=== PATIENT | male | born 1980 | race Two or more races ===

== ENCOUNTER 2019-01-10 10:56 | Emergency (ER) | payer MEDICAID, OTHER ==
[~2019-01-10] VITALS: Ht 182.9 cm; Wt 154.2 kg
[2019-01-10] MEDS ORDERED: SODIUM CHLORIDE 0.9% 1,000 ML IV ONE (11:51)
[2019-01-10] MEDS ORDERED: PROMETHAZINE HCL 25 MG/ML 1ML IV PRN (12:00)
[2019-01-10] MEDS ORDERED: KETOROLAC TROMETH 30 MG/ML 1ML VIAL IV ONE (12:00)
[2019-01-10 12:05] LABS: Basophils # (auto) 0.1 uL; Basophils % (auto) 0.7 % (0.0-2.0); Eosinophils # (auto) 0.1 uL; Eosinophils % (auto) 1.8 % (0.0-7.0); Hematocrit 49.8 % (41.0-53.0); Hemoglobin 16.8 g/dL (13.5-17.5); Lymphocytes # (auto) 2.2 uL; Lymphocytes % (auto) 28.8 % (10.0-50.0); Mean Corpuscular Hgb Conc. 33.6 g/dL (32.0-36.0); Mean Corpuscular Volume 89.1 fL (80.0-100.0); Monocytes # (auto) 0.6 uL; Monocytes % (auto) 8.3 % (0.0-12.0); Neutrophils # (auto) 4.7 uL; Neutrophils % (auto) 60.4 % (37.0-80.0); Nucleated Red Blood Cells % 0.1 %; Platelet Count (auto) 188 10^3/uL (140-450); Red Blood Cells 5.59 10^6/uL (4.5-5.90); Red Cell Distribution Width 13.7 % (11.8-14.3); White Blood Cell 7.7 10^3/uL (4.4-10.8)
[2019-01-10 12:45] LABS: Albumin 3.7 g/dL (3.4-5.0); BUN/Creatinine Ratio 17.4; Calcium 8.8 mg/dL (8.5-10.1); Magnesium 2.3 mg/dL (1.6-2.6); Potassium 3.9 mmol/L (3.5-5.1)
[2019-01-10 12:47] LABS: Bilirubin, Total 0.7 mg/dL (0.2-1.0); Total Protein 8.1 g/dL (6.4-8.2)
[2019-01-10 16:30] VITALS: BP 156/86
== END 2019-01-10 17:45 | disposition home or self-care (01) ==
LOC: ER 10:56
DX: S39.011A Strain of muscle, fascia and tendon of abdomen, initial encounter (principal); K80.80 Other cholelithiasis without obstruction; X50.9XXA Other and unspecified overexertion or strenuous movements or postures, initial encounter; Y93.89 Activity, other specified; Y99.8 Other external cause status; Y92.89 Other specified places as the place of occurrence of the external cause
CPT/HCPCS: 36415; 74176; 76705; 80053; 83690; 83735; 85025; 96374; 99284; J1885